=== PATIENT | male | born 1960 | race Caucasian/White ===

== ENCOUNTER 2022-03-30 19:45 | Emergency (ER) | payer OTHER ==
[~2022-03-30] VITALS: Ht 190.5 cm; Wt 94.5 kg
[2022-03-30 19:51] VITALS: TEMP 97.9
[2022-03-30 20:29] LABS: BASO # 0.1 K/mm3 (0.0-0.2); BASO % 0.6 % (0.0-2.0); EOS # 0.2 K/mm3 (0.0-0.7); EOS % 2.3 % (0.0-4.0); GRAN # 5.5 K/mm3 (1.4-6.5); GRAN % 59.3 % (42.2-75.2); HEMATOCRIT 43.1 % (42.0-52.0); HEMOGLOBIN 14.5 g/dl (13.5-18.0); LYMPH # 2.5 K/mm3 (1.2-3.4); MEAN CELL VOLUME 90 fl (80.0-100.0); MEAN CORPUSCULAR HEMOGLOBIN 30 pg (27-31); MEAN CORPUSCULAR HGB CONC 34 g/dl (33.0-37.0); MEAN PLATELET VOLUME 11.2 fl (7.4-10.4); MONO % 10.6 % (1.7-9.3); PLATELET COUNT 240 K/mm3 (130-400); RED BLOOD COUNT 4.81 M/mm3 (4.20-5.60); REDCELL DISTRIBUTION WIDTH-CV 13.2 % (11.5-14.5)
[2022-03-30 20:40] LABS: ALBUMIN 3.7 gm/dL (3.4-4.8); ANION GAP 9 mmol/L (7-16); BLOOD UREA NITROGEN 20 mg/dL (8-26); CALCIUM 8.9 mg/dL (8.4-10.2); CARBON DIOXIDE 21 mmol/L (23-31); CHLORIDE 109 mmol/L (98-107); CREATININE, serum 1.37 mg/dL (0.72-1.25); GLUCOSE 96 mg/dL (70-99); POTASSIUM 4.1 mmol/L (3.5-4.5); SODIUM 139 mmol/L (136-145)
[2022-03-30 20:52] LABS: TROPONIN-I < 0.010 ng/mL (0.00-0.033)
[2022-03-30] MEDS ORDERED: PLAVIX 75MG TAB75 MG PO (23:54)
[2022-03-30] MEDS ORDERED: NITROSTAT0.4 MG/TAB SL (23:54)
[2022-03-30 23:57] VITALS: BP 122/77; PULSE 59
[2022-03-31] MEDS ORDERED: PLAVIX 75MG TAB75 MG PO (02:22)
[2022-03-31] MEDS ORDERED: NITROSTAT0.4 MG/TAB SL (02:22)
== END 2022-03-31 00:12 | disposition home or self-care (01) ==
LOC: COL.ER 19:45
PROVIDERS: Emergency Medicine
DX: R07.89 Other chest pain (principal); Z82.49 Family history of ischemic heart disease and other diseases of the circulatory system; Z28.311 Partially vaccinated for COVID-19